=== PATIENT | male | born 1990 | race Caucasian/White ===

== ENCOUNTER 2016-07-12 10:36 | Emergency (ER) | payer OTHER ==
[~2016-07-12] VITALS: Ht 167.6 cm; Wt 86.4 kg
[2016-07-12 10:44] VITALS: BP 117/69; PULSE 68; RESP 18; O2SAT 99
--- NOTE | 2016-07-12 11:57 | ED.REPORT ---
HPI-Dyspnea / Wheezing Date of Service Jul 12, 2016 ED Provider: Yousuf Gardner MD This is a 25 year old male presenting to the emergency department due to hemoptysis that began six months ago but worsened today. Described as spots in phlegm while coughing or "clots" at times. Associated symptoms include nasal congestion and chest "tightness." Patient uses a vape on a daily basis.Denies fever, chills, nausea, vomiting, bowel or bladder changes, history of tuberculosis, or prolonged periods of inactivity. Nursing Notes Stated Complaint: COUGHING UP BLOOD Chief Complaint: Respiratory Complaints Nursing Notes Reviewed: Yes Allergies: Coded Allergies: No Known Allergies (Unverified , 07/12/16) Scheduled Azithromycin (Zithromax (Z-Justen)) 250 Mg Tablet 250 MG PO DIRECTED Take two tablets by mouth on day 1, then take one tablet daily on days 2 through 5. General Time Seen by MD: 11:57 Chief Complaint Other Hx Obtained From: Patient Arrived By: Walk-in Sudden in Onset?: Yes Onset Occurred: Just prior to arrival Symptom Duration: Since onset Severity: Current: No pain currently Pertinent Negative: Pt denies other symptoms Recent Healthcare: No recent doctor visit, No recent hospitalization Similar Sx Previous: No Past Medical History Past Medical History Denies Ambulatory Status Independent Review of Systems Constitutional: Denies: Chills, Fever Ears / Nose / Throat: Reports: Nasal congestion Respiratory: Reports: Prod cough, bloody, Denies: Shortness of breath Cardiovascular: Reports: Chest pain Musculoskeletal: Denies: Back pain, Extremity pain Complete sys rev & neg: except as marked. Physical Exam Initial Vital Signs Vital Signs (First) Date Time Temp Pulse Resp B/P Pulse Ox O2 Delivery O2 Flow Rate FiO2 07/12/16 10:44 37.2 68 18 117/69 99 Room Air Initial VS: Reviewed Head / Eyes: Atraumatic, Normocephalic, PERRL ENT: Mucous membranes moist, Conjunctiva normal, No scleral icterus Abdomen / GI: Soft, Non-tender, No guarding, No rebound, No distention Extremities: Vascular intact, Neuro intact, No swelling, No tenderness Skin: Warm, Dry, No cyanosis Psychiatric: Mood/affect normal, Behavior normal, Normal thought content General/Constitutional: Awake, Alert Neck: Atraumatic, Supple, No meningismus, Full range of motion, No swelling, Non-tender, No masses Respiratory / Chest: No respiratory distress, No rales, No rhonchi Wheezing / Retractions: Positive: Wheeze insp/exp diffuse Cardiovascular: Heart rate NL, Regular rhythm, Heart sounds NL, Peripheral circulation NL Interpretation & Diagnostics Interpretation & Diagnostics: CHEST X-RAY IMPRESSION: No acute cardiopulmonary disease. Dictated by: Isaac Shi M.D. on 07/12/2016 at 12:32 Approved by: Isaac Shi M.D. on 07/12/2016 at 12:33 Re-Eval/Medical Decision Med Decision/Clinical Course 25-year-old male smoker presenting with coughing up green sputum blood-tinged 1 day. Vital signs are stable. Mild wheezing on exam. Chest x-ray is clear. He has no risk factors for tuberculosis. Possible bronchitis will treat for this. Discussed with patient possibility of more serious causes the decision made to treat with antibiotics at this time with follow-up with primary doctor 1-2 days for further evaluation. He does not want any further testing at this time. Return precautions given. Counseled Regarding: Diagnosis, Lab results, Need for follow-up, When/why to return to ED Discharge & Departure Impression: Primary Impression: Acute bronchitis Bronchitis organism: unspecified organism Qualified Code: J20.9 - Acute bronchitis, unspecified Disposition: Home Discharge Condition All VS Reviewed: Yes Condition: Stable Patient Instructions: Acute Bronchitis (ED) Additional Instructions: Thank you for seeking care in the emergency department. Your x-ray did not indicate an acute cause for your symptoms today. Follow up with your primary care provider for further evaluation. Return to the emergency department with any new or worsening symptoms. Referrals: [facility] Scribe Attestation Portions of this note were transcribed by Hudson Talbot. I, Dr. Gardner personally performed the history, physical exam and medical decision-making; I reviewed and confirmed the accuracy of the information in the transcribed note. Signed by Mark Granados, 07/12/2016 at 18:00. Yousuf Gardner MD Jul 12, 2016 11:57 HUDSON TALBOT Jul 12, 2016 12:02
--- NOTE | 2016-07-12 12:34 | DRSVH ---
PROCEDURE: X-RAY CHEST, TWO VIEWS ([id number]) INDICATIONS: 25 year-old male with hemoptysis for 6 months. TECHNIQUE: 2 views of the chest were acquired. COMPARISON: None. FINDINGS: Surgical changes and devices: None. Lungs and pleura: No pleural effusions or pneumothorax. Lungs are clear. Mediastinum: Mediastinal contours are normal. Heart size is normal. Bones and chest wall: No suspicious bony abnormalities. Soft tissues appear unremarkable. IMPRESSION: No acute cardiopulmonary disease. Dictated by: Isaac Shi M.D. on 07/12/2016 at 12:32 Approved by: Isaac Shi M.D. on 07/12/2016 at 12:33
[2016-07-12] MEDS ORDERED: AZIT250T4 PO (13:14)
[2016-07-12 13:29] VITALS: BP 104/53; PULSE 71; RESP 15; O2SAT 99
[2016-07-12 13:33] VITALS: BP 104/53; PULSE 71; RESP 15; O2SAT 99
== END 2016-07-12 13:34 | disposition home or self-care (01) ==
LOC: SED 10:36
DX: J20.9 Acute bronchitis, unspecified (principal)